=== PATIENT | female | born 1985 | race Hispanic/Latino ===

== ENCOUNTER 2018-08-14 03:33 | Emergency (ER) | payer SELFPAY ==
[~2018-08-14] VITALS: Ht 162.6 cm; Wt 96.6 kg
[2018-08-14 06:19] VITALS: BP 105/66
== END 2018-08-14 07:00 | disposition left against medical advice (07) ==
LOC: ER 03:33
DX: R11.2 Nausea with vomiting, unspecified (principal); F31.9 Bipolar disorder, unspecified; F17.210 Nicotine dependence, cigarettes, uncomplicated
CPT/HCPCS: 99283